=== PATIENT | male | born 1955 | race African-American/Black ===

== ENCOUNTER 2023-06-09 11:03 | Emergency (ER) | payer SELFPAY ==
[2023-06-09] MEDS ORDERED: DIPHENHYDRAMINE 50 MG/ML VIAL ONE (13:08)
[2023-06-09] MEDS ORDERED: FENTANYL CITR 100 MCG/2 ML ONE ×3 (13:08→16:03)
--- NOTE | 2023-06-09 13:14 | RAD REPORT ---
EXAM DESCRIPTION: Moris Single View06/09/2023 12:49 pm CLINICAL HISTORY: CHEST PAIN COMPARISON: No comparisons TECHNIQUE: Portable AP view of the chest. FINDINGS: The lungs are clear apart from mild left more than right basilar atelectasis. Decreased in spiratory effort limits evaluation. No pneumothorax or effusion. The cardiomediastinal contours are unremarkable. IMPRESSION: No acute cardiopulmonary process.
[2023-06-09 13:22] LABS: Albumin 3.5 g/dL (3.4-5.0); Bilirubin Direct 0.2 mg/dL (0-0.2); Bilirubin Indirect, Calculated 0.7 mg/dL (0.2-0.8); Bilirubin Total 0.9 mg/dL (0.2-1.0); Magnesium 2.4 mg/dL (1.6-2.4); Potassium 3.9 mEq/L (3.5-5.1); Troponin High Sensitivity 7.6 pg/mL (<58.9)
[2023-06-09 14:57] LABS: Absolute Lymphocytes (CBC) 0.7 K/uL (0.7-4.9); Hematocrit 34.4 % (39.6-49.0); Lymphocytes % 29.3 % (15.3-44.8); MCV 74.1 fL (80-100); MPV 8.6 fL (7.6-11.3); Platelets 131 thou/uL (152-406); RBC Red Blood Cell Count 4.63 M/uL (4.33-5.43)
--- NOTE | 2023-06-09 16:18 | ER ---
Nurse's Notes [facility] Name: Jamar Cheung Age: 67 yrs Sex: Male : 1955 Arrival Date: 06/09/2023 Time: 11:03 Bed 13 Private MD: Diagnosis: Chest pain, unspecified;Unstable angina Presentation: 06/09 11:11 Chief complaint: Patient states: "I was walking this morning, I started having chest rs5 pains, then I threw up blood". 11:11 Coronavirus screen: At this time, the client does not indicate any symptoms associated rs5 with coronavirus-19. Ebola Screen: No symptoms or risks identified at this time. Initial Sepsis Screen: Does the patient meet any 2 criteria? No. Patient's initial sepsis screen is negative. Does the patient have a suspected source of infection? No. Patient's initial sepsis screen is negative. Risk Assessment: Do you want to hurt yourself or someone else? Patient reports no desire to harm self or others. Onset of symptoms was June 09, 2023. 11:11 Method Of Arrival: Wheelchair rs5 11:11 Acuity: JALEN 3 rs5 11:11 Care prior to arrival: Medication(s) given: Nitroglycerin, 0.4 mg SL x 2. rs5 Historical: - Allergies: 11:18 No Known Allergies; rs5 - PMHx: 11:18 Congenital heart disease; Atrial fibrillation; Myocardial infarction; rs5 - PSHx: 11:18 Stented artery; IVC filter; rs5 - Immunization history:: Adult Immunizations unknown. - Social history:: Smoking status: Patient denies any tobacco usage or history of. Screenin:[address] [facility] ED Fall Risk Assessment (Adult) History of falling in the last 3 months, bp including since admission No falls in past 3 months (0 pts). Abuse screen: Denies threats or abuse. Denies injuries from another. Nutritional screening: No deficits noted. Tuberculosis screening: No symptoms or risk factors identified. Assessment: 11:11 Reassessment: I took two 0.4 sublingual nitroglycerin tablets before I came here and rs5 they didn't help about an hour ago. 11:11 General: Appears in no apparent distress. comfortable, Behavior is calm, cooperative. rs5 Pain: Complains of pain in chest Pain does not radiate. Pain currently is 7 out of 10 on a pain scale. Quality of pain is described as aching, Pain began 3 hours ago. Is continuous. 11:11 Neuro: Level of Consciousness is awake, alert, obeys commands, Oriented to person, rs5 place, time, situation. Cardiovascular: Heart tones S1 S2 present Rhythm is regular. Cardiovascular: Denies nausea, vomiting. Respiratory: Airway is patent Respiratory effort is even, unlabored, Respiratory pattern is regular, symmetrical, Breath sounds are clear bilaterally. GI: Abdomen is round non-distended, Bowel sounds present X 4 quads. Abd is soft and non tender X 4 quads. : No signs and/or symptoms were reported regarding the genitourinary system. EENT: No signs and/or symptoms were reported regarding the EENT system. Derm: Skin is intact, Skin is dry, Skin is normal, Skin temperature is warm. Musculoskeletal: Range of motion: intact in all extremities. 11:20 Reassessment: Missed attempt IV insertion to RAC. Pressure dressing applied, bleeding rs5 controlled. 11:40 Reassessment: Patient and/or family updated on plan of care and expected duration. Pain rs5 level reassessed. Patient is alert, oriented x 3, equal unlabored respirations, skin warm/dry/pink. Cardiovascular: Heart tones S1 S2 present Rhythm is regular. 11:40 Respiratory: Airway is patent Respiratory effort is even, unlabored, Respiratory rs5 pattern is regular, symmetrical. 11:40 Pain: Complains of pain in chest Pain does not radiate. Pain currently is 7 out of 10 rs5 on a pain scale. Quality of pain is described as aching, Provider notified pt is still experiencing pain Is continuous. 12:20 Reassessment: RN at bedside for IV insertion and blood draw. rs5 13:35 Reassessment: Pt ambulatory to restroom.. aa5 13:44 Reassessment: Warm blanket given for comfort. . Neuro: Level of Consciousness is awake, aa5 alert, obeys commands, Oriented to person, place, time, situation. Respiratory: Airway is patent Respiratory effort is even, unlabored, Respiratory pattern is regular, symmetrical. Derm: Skin is dry, Skin is normal, Skin temperature is warm. 14:00 Pain: Complains of pain in chest Pain currently is 7 out of 10 on a pain scale. Quality rs5 of pain is described as aching, Provider notified pt is still experiencing pain Is continuous. 15:20 Reassessment: Patient and/or family updated on plan of care and expected duration. Pain rs5 level reassessed. Patient is alert, oriented x 3, equal unlabored respirations, skin warm/dry/pink. 16:00 Pain: Complains of pain in chest Pain currently is 8 out of 10 on a pain scale. Quality rs5 of pain is described as aching, Provider notified pt is still experiencing pain Is continuous, Noted to be No facial grimacing noted. 16:39 Reassessment: [place] and crackers provided per pt request. Cardiovascular: Rhythm is rs5 regular. 17:01 Pain: Complains of pain in chest Pain currently is 7 out of 10 on a pain scale. Quality rs5 of pain is described as aching, Provider notified pt is experiencing pain Is continuous, Noted to be No facial grimacing, gaurding, or moaning noted. 17:05 Reassessment: Provider at bedside. rs5 18:59 Reassessment: Patient and/or family updated on plan of care and expected duration. Pain rs5 level reassessed. Patient is alert, oriented x 3, equal unlabored respirations, skin warm/dry/pink. Cardiovascular: Rhythm is regular. Respiratory: Respiratory effort is even, unlabored, Respiratory pattern is regular, symmetrical. 19:01 Reassessment: Report given to pediatric orthodontist nurse. rs5 21:35 General: Report called to Raquel Conte RN at [facility]. Transport will arrive in the la4 next 10-15 minutes. Pt updated on status and plan of care. 21:36 General: Appears in no apparent distress. comfortable, Behavior is calm, cooperative, la4 appropriate for age. Pain: Complains of pain in mid-sternal area Pain radiates to left arm Pain currently is 8 out of 10 on a pain scale. at worst was 10 out of 10 on a pain scale. Quality of pain is described as heavy, pressure, Is continuous, Noted to be pt calm cooperative and talkative. No distress noted. Vital Signs: 11:11 BP 136 / 86; Pulse 88; Resp 17; Pulse Ox 99% on R/A; rs5 11:15 BP 140 / 82; Pulse 82; Resp 17; Pulse Ox 99% on R/A; rs5 12:20 BP 137 / 80; Pulse 79; Resp 16; Pulse Ox 99% on R/A; rs5 13:43 Pulse 74; Resp 18 S; Pulse Ox 100% on R/A; aa5 21:31 BP 119 / 73; Pulse 88; Resp 18; Temp 97.6(O); Pulse Ox 96% on R/A; Pain 8/10; la4 21:31 Pain Scale: Adult la4 21:31 reports chest pain remains the same as before. Pressure radiating down his left arm la4 which is also reported as pressure. [place] Coma Score: 21:31 Eye Response: spontaneous(4). Motor Response: obeys commands(6). Verbal Response: la4 oriented(5). Total: 15. ED Course: 11:06 Patient arrived in ED. mg5 11:08 Joseph Dao MD is Attending Physician. kdr 11:09 Marco A Dent, RN is Primary Nurse. rs5 11:11 Arm band placed on Patient placed in an exam room, on a stretcher. ll1 11:18 Triage completed. rs5 11:20 Missed attempt(s): 22 gauge in left antecubital area. Bleeding controlled, band aid rs5 applied, catheter tip intact. 11:48 Missed attempt(s): 22 gauge in right forearm. Bleeding controlled, band aid applied, aa5 catheter tip intact. 12:22 Inserted saline lock: 20 gauge in right forearm, using aseptic technique. ,using rs5 aseptic technique. Ultrasound guided. Catheter tip well visualized within vasculature during placement. Blood collected. 12:50 XRAY Chest (1 view) In Process Unspecified. EDMS 23:00 Patient has correct armband on for positive identification. Bed in low position. Call bp light in reach. Side rails up X2. Client placed on continuous cardiac and pulse oximetry monitoring. NIBP monitoring applied. 23:00 No provider procedures requiring assistance completed. Patient transferred, IV remains bp in place. Oxygen administration via nasal cannula \\T\\ 2L/min. Administered Medications: 12:22 Drug: morphine IVP or IV 4 mg IVP once over 4 mins Route: IVP; Infused Over: 4 mins; rs5 Site: right antecubital; 12:45 Follow up: Response: No adverse reaction; Pain is unchanged, physician notified rs5 12:22 Drug: Ondansetron IVP 4 mg IVP once; over 2 minutes Route: IVP; Site: right antecubital;rs5 12:45 Follow up: Response: No adverse reaction rs5 13:00 Drug: fentaNYL (PF) IVP 25 mcg IVP once Route: IVP; Site: right antecubital; rs5 13:30 Follow up: Response: No adverse reaction; Pain is unchanged, physician notified rs5 13:00 Drug: diphenhydrAMINE IVP 25 mg IVP once Route: IVP; Site: right antecubital; rs5 13:30 Follow up: Response: No adverse reaction rs5 13:43 Drug: fentaNYL (PF) IVP 25 mcg IVP once Route: IVP; Site: right forearm; aa5 14:01 Follow up: Response: No adverse reaction; Pain is decreased rs5 15:40 Drug: fentaNYL (PF) IVP 25 mcg IVP once Route: IVP; Site: right antecubital; rs5 16:01 Follow up: Response: No adverse reaction; Pain is decreased rs5 16:37 Drug: HYDROmorphone IVP 1 mg IVP once Route: IVP; Site: right forearm; rs5 17:01 Follow up: Response: No adverse reaction; Pain is decreased rs5 19:19 Drug: HYDROmorphone IVP 1 mg IVP once Route: IVP; Site: right forearm; la4 23:01 Follow up: Response: No adverse reaction bp 19:23 Drug: Pantoprazole IVP 40 mg IVP once Route: IVP; Site: right forearm; la4 23:01 Follow up: Response: No adverse reaction bp Outcome: 16:18 ER care complete, transfer ordered by . kdr 23:00 Transferred by ground EMS bp 23:00 Condition: stable 23:00 Instructed on the need for transfer, 23:01 Patient left the ED. bp Signatures: Dispatcher [employer] EDMS Joseph Dao MD MD kdr Calderon, Audri, RN RN aa5 Emilio Guzman RN RN bp Lewis, Lynsay, RN RN ll1 Marco A Dent RN RN rs5 Allegra Joya RN RN [facility] Kim Salomon 5 Yudi Buckner RN RN la4 Corrections: (The following items were deleted from the chart) 12:43 12:35 Inserted saline lock: 20 gauge in right antecubital area, using aseptic nj1 technique. ,using aseptic technique. Ultrasound guided. Catheter tip well visualized within vasculature during placement. Blood collected. nj1 13:30 12:35 Inserted saline lock: 20 gauge in right forearm, using aseptic technique. ,using rs5 aseptic technique. Ultrasound guided. Catheter tip well visualized within vasculature during placement. Blood collected. nj1 19:00 19:00 Response: No adverse reaction; Pain is unchanged, physician notified rs5 rs5 19:17 11:40 Cardiovascular: Heart tones S1 S2 present Rhythm is regular rs5 rs5
--- NOTE | 2023-06-09 16:18 | EDPHYS ---
Physician Documentation [facility] Name: Jamar Cheung Age: 67 yrs Sex: Male : 1955 Arrival Date: 06/09/2023 Time: 11:03 Bed 13 Private MD: ED Physician Joseph Dao HPI: 06/09 14:09 This 67 yrs old Black Male presents to ER via Wheelchair with complaints of Chest Pain, kdr Vomiting - Blood. 14:09 Patient states that he was out for his usual morning walk this morning when he began to kdr have some chest discomfort with radiation into his left arm. He states that the discomfort feels like his second heart attack. He also threw up blood twice. Last time he vomited blood was just before arrival. Patient is in no acute distress at the time of initial interview.. Onset: The symptoms/episode began/occurred suddenly, just prior to arrival, this morning. Severity of symptoms: At their worst the symptoms were mild in the emergency department the symptoms are unchanged. The patient has experienced similar episodes in the past, several times. The patient has not recently seen a physician. Historical: - Allergies: 11:18 No Known Allergies; rs5 - PMHx: 11:18 Congenital heart disease; Atrial fibrillation; Myocardial infarction; rs5 - PSHx: 11:18 Stented artery; IVC filter; rs5 - Immunization history:: Adult Immunizations unknown. - Social history:: Smoking status: Patient denies any tobacco usage or history of. ROS: 14:09 Constitutional: Negative for fever, chills, and weight loss, Eyes: Negative for injury, kdr pain, redness, and discharge, ENT: Negative for injury, pain, and discharge, Neck: Negative for injury, pain, and swelling, Back: Negative for injury and pain, 14:09 Cardiovascular: Positive for chest pain, 14:09 Respiratory: Positive for shortness of breath, on exertion. 14:09 Abdomen/GI: Positive for nausea, hematemesis, Negative for abdominal pain, abdominal cramps, abdominal distension, black/tarry stool, rectal pain, rectal bleeding, bowel incontinence, The patient takes an iron supplement so his stools are normally dark, Exam: 14:09 Constitutional: This is a well developed, well nourished patient who is awake, alert, kdr and in no acute distress. Head/Face: Normocephalic, atraumatic. Eyes: Pupils equal round and reactive to light, extra-ocular motions intact. Lids and lashes normal. Conjunctiva and sclera are non-icteric and not injected. Cornea within normal limits. Periorbital areas with no swelling, redness, or edema. Neck: Trachea midline, no thyromegaly or masses palpated, and no cervical lymphadenopathy. Supple, full range of motion without nuchal rigidity, or vertebral point tenderness. No Meningismus. Chest/axilla: Normal chest wall appearance and motion. Nontender with no deformity. No lesions are appreciated. Cardiovascular: Regular rate and rhythm with a normal S1 and S2. No gallops, murmurs, or rubs. Normal PMI, no JVD. No pulse deficits. Respiratory: Lungs have equal breath sounds bilaterally, clear to auscultation and percussion. No rales, rhonchi or wheezes noted. No increased work of breathing, no retractions or nasal flaring. Abdomen/GI: Soft, non-tender, with normal bowel sounds. No distension or tympany. No guarding or rebound. No evidence of tenderness throughout. Back: No spinal tenderness. No costovertebral tenderness. Full range of motion. Skin: Warm, dry with normal turgor. Normal color with no rashes, no lesions, and no evidence of cellulitis. MS/ Extremity: Pulses equal, no cyanosis. Neurovascular intact. Full, normal range of motion. Neuro: Awake and alert, GCS 15, oriented to person, place, time, and situation. Cranial nerves II-XII grossly intact. Motor strength 5/5 in all extremities. Sensory grossly intact. Cerebellar exam normal. Normal gait. Psych: Awake, alert, with orientation to person, place and time. Behavior, mood, and affect are within normal limits. 15:16 ECG was reviewed by the Attending Physician. kdr Vital Signs: 11:11 BP 136 / 86; Pulse 88; Resp 17; Pulse Ox 99% on R/A; rs5 11:15 BP 140 / 82; Pulse 82; Resp 17; Pulse Ox 99% on R/A; rs5 12:20 BP 137 / 80; Pulse 79; Resp 16; Pulse Ox 99% on R/A; rs5 13:43 Pulse 74; Resp 18 S; Pulse Ox 100% on R/A; aa5 21:31 BP 119 / 73; Pulse 88; Resp 18; Temp 97.6(O); Pulse Ox 96% on R/A; Pain 8/10; la4 21:31 Pain Scale: Adult la4 21:31 reports chest pain remains the same as before. Pressure radiating down his left arm la4 which is also reported as pressure. [place] Coma Score: 21:31 Eye Response: spontaneous(4). Motor Response: obeys commands(6). Verbal Response: la4 oriented(5). Total: 15. MDM: 16:18 Patient medically screened. kdr 16:18 Data reviewed: vital signs, nurses notes. kdr 19:10 ED course: Mr. Cheung has had no further vomiting, does states he has some mild chest snw pain. Will repeat pain medications. Takes protonix at home but will give one dose IV. Awaiting transfer.. 19:49 Counseling: I had a detailed discussion with the patient and/or guardian regarding the snw historical points, exam findings, and any diagnostic results supporting the discharge/admit diagnosis, lab results, radiology results, the need to transfer to another facility, [facility] does not immediately have the required specialist, needs GI eval. Response to treatment: the patient's symptoms have markedly improved after treatment. ED course: Awaiting transfer. Spoke with Dr. Randall, GI, at [facility]. He will kindly see patient, Their GI coverage ends on Tuesday.. 20:58 I considered the following discharge prescriptions or medication management in the [facility] emergency department Medications were administered in the Emergency Department. See SEP. ED course: [facility] accepts pt in transfer without further report. Dr. Berry Multani kindly accepts pt in transfer.. 06/09 11:09 Order name: Basic Metabolic Panel; Complete Time: 15:12 kdr 06/09 11:09 Order name: CBC with Diff kdr 06/09 11:09 Order name: LFT's; Complete Time: 15:12 kdr 06/09 11:09 Order name: Magnesium; Complete Time: 15:12 kdr 06/09 11:09 Order name: NT PRO-BNP; Complete Time: 15:12 kdr 06/09 11:09 Order name: Troponin HS; Complete Time: 15:12 kdr 06/09 11:09 Order name: Type And Screen; Complete Time: 15:12 kdr 06/09 15:30 Order name: ABO/RH no charge; Complete Time: 18:53 EDMS 06/09 15:44 Order name: Hemoglobin: 1 hour from initial draw; Complete Time: 17:27 kdr 06/09 16:19 Order name: PT-INR; Complete Time: 20:35 kdr 06/09 18:58 Order name: Manual Differential EDMS 06/09 11:09 Order name: XRAY Chest (1 view); Complete Time: 15:12 kdr 06/09 11:09 Order name: EKG; Complete Time: 11:10 kdr 06/09 11:09 Order name: Cardiac monitoring; Complete Time: 11:54 kdr 06/09 11:09 Order name: EKG - Nurse/Tech; Complete Time: 11:54 kdr 06/09 11:09 Order name: IV Saline Lock; Complete Time: 12:42 kdr 06/09 11:09 Order name: Labs collected and sent; Complete Time: 12:42 kdr 06/09 11:09 Order name: O2 Per Protocol; Complete Time: 11:54 kdr 06/09 11:09 Order name: O2 Sat Monitoring; Complete Time: 11:54 kdr 06/09 13:08 Order name: Labs - recollect needed: recollect CBC please; Complete Time: 13:29 em1 06/09 15:43 Order name: EKG Strip; Complete Time: 17:38 kdr EC:16 Rate is 90 beats/min. Rhythm is regular, Sinus Rhythm with No ectopy, Right bundle kdr branch block. QRS [place] is Normal. MA interval is normal. QRS interval is normal. Clinical impression: NSR w/ Non-specific ST/T Changes, Abnormal EKG without significant change, and No change from prior ECG. Administered Medications: 12:22 Drug: morphine IVP or IV 4 mg IVP once over 4 mins Route: IVP; Infused Over: 4 mins; rs5 Site: right antecubital; 12:45 Follow up: Response: No adverse reaction; Pain is unchanged, physician notified rs5 12:22 Drug: Ondansetron IVP 4 mg IVP once; over 2 minutes Route: IVP; Site: right antecubital;rs5 12:45 Follow up: Response: No adverse reaction rs5 13:00 Drug: fentaNYL (PF) IVP 25 mcg IVP once Route: IVP; Site: right antecubital; rs5 13:30 Follow up: Response: No adverse reaction; Pain is unchanged, physician notified rs5 13:00 Drug: diphenhydrAMINE IVP 25 mg IVP once Route: IVP; Site: right antecubital; rs5 13:30 Follow up: Response: No adverse reaction rs5 13:43 Drug: fentaNYL (PF) IVP 25 mcg IVP once Route: IVP; Site: right forearm; aa5 14:01 Follow up: Response: No adverse reaction; Pain is decreased rs5 15:40 Drug: fentaNYL (PF) IVP 25 mcg IVP once Route: IVP; Site: right antecubital; rs5 16:01 Follow up: Response: No adverse reaction; Pain is decreased rs5 16:37 Drug: HYDROmorphone IVP 1 mg IVP once Route: IVP; Site: right forearm; rs5 17:01 Follow up: Response: No adverse reaction; Pain is decreased rs5 19:19 Drug: HYDROmorphone IVP 1 mg IVP once Route: IVP; Site: right forearm; la4 23:01 Follow up: Response: No adverse reaction bp 19:23 Drug: Pantoprazole IVP 40 mg IVP once Route: IVP; Site: right forearm; la4 23:01 Follow up: Response: No adverse reaction bp Disposition Summary: 06/09/23 16:18 Transfer Ordered Notes: Transfer Location: [facility] kdr Reason: Higher level of care kdr Condition: Fair kdr Problem: new kdr Symptoms: have improved kdr Accepting Physician: Dr. Vikas Multani(06/09/23 23:01) bp Diagnosis - Chest pain, unspecified kdr - Unstable angina kdr Forms: - Medication Reconciliation Form kdr - SBAR form kdr Signatures: Dispatcher [employer] EDMS Joseph Dao MD MD kdr Salma Mauricio FNP-C FNP-Anjel Collado em1 Veronika Warren, RN RN aa5 Emilio Guzman RN RN bp Marco A Dent, RN RN rs5 Yudi Buckner RN RN la4 Corrections: (The following items were deleted from the chart) 22:48 16:18 kjg kdr snw 23:01 22:48 Dr. Vikas Multani [facility] bp
[2023-06-09] MEDS ORDERED: HYDROMORPHONE HCL 1 MG/ML INJ ONE ×2 (16:47→19:30)
[2023-06-09 18:57] LABS: Anisocytosis 2+; Blood Morphology Comment NOTED (NOT SEEN); Ovalocytes 1+; Platelet Estimate ADEQ; Poikilocytosis 2+
[2023-06-09 18:58] LABS: Burr Cells 1+; Platelets, Giant OCC
[2023-06-09] MEDS ORDERED: PANTOPRAZOLE 40 MG INJ ONE (19:30)
[2023-06-09 20:35] LABS: Protime INR 1.07
[2023-06-09 23:29] VITALS: BP 119/73; TEMP 97.6; O2SAT 96
--- NOTE | 2023-06-10 14:26 | EKG ---
Test Date: 2023-06-09 Test Time: 11:24:21 Public Area Attendant: LIS MEASUREMENT RESULTS: Intervals: Rate: 90 RI: 138 QRSD: 128 QT: 402 QTc: 491 [place]: P: 58 RI: 138 QRS: 220 T: 21 INTERPRETIVE STATEMENTS: Sinus rhythm with sinus arrhythmia with fusion complexes Right bundle branch block Abnormal ECG No previous ECG available for comparison Electronically Signed On 06-10-23 14:22:33 GLASS INSPECTOR by Lv Muir
--- NOTE | 2023-06-15 17:12 | EKG ---
Test Date: 2023-06-09 Test Time: 16:24:29 Geophysical Engineer: LIS MEASUREMENT RESULTS: Intervals: Rate: 80 CA: 148 QRSD: 86 QT: 390 QTc: 449 [place]: P: 67 CA: 148 QRS: -44 T: 54 INTERPRETIVE STATEMENTS: Normal sinus rhythm with sinus arrhythmia Left axis deviation Inferior-posterior infarct, age undetermined Abnormal ECG Compared to ECG 06/09/2023 11:24:21 Left-axis deviation now present Myocardial infarct finding now present Fusion complex(es) no longer present Right bundle-branch block no longer present Electronically Signed On 06-15-23 16:56:55 COLORED LEATHER SETTER by Lv Muir
== END 2023-06-09 23:01 | disposition short-term general hospital (02) ==
LOC: ER 11:03
DX: I20.0 Unstable angina (principal); I48.91 Unspecified atrial fibrillation; I25.2 Old myocardial infarction
CPT/HCPCS: 36415; 71045; 80048; 80076; 83735; 83880; 84484; 85018; 85025; 85610; 86850; 86900; 86901; 93005; 99285; C9113; J1170; J1200; J3010